=== PATIENT | male | born 1960 | race African-American/Black ===

== ENCOUNTER 2018-01-28 23:07 | Inpatient (IN) | payer MEDICAID ==
[~2018-01-28] VITALS: Ht 175.3 cm; Wt 159.0 kg
[2018-01-28] MEDS ORDERED: SODIUM CHLORIDE FLUSH 10ML SYR IVF ONE (23:30)
[2018-01-29] VITALS (8 sets, daily range): BP systolic 124–161; BP diastolic 84–109
[2018-01-29 00:05] LABS: ALANINE AMINOTRANSFERASE 25 U/L (12-78); ALBUMIN 3.6 g/dL (3.4-5.0); ANION GAP 10 mmol/L (5-15); CALCIUM 8.7 mg/dL (8.5-10.1); CHLORIDE 108 mmol/L (98-107); CREATININE 1.35 mg/dL (0.7-1.3)
[2018-01-29 00:08] LABS: BASOPHILS % (AUTO) 1 % (0-1); EOSINOPHILS # (AUTO) 0.03 x10^3/uL (0-0.4); EOSINOPHILS % (AUTO) 0 % (1-7); LYMPHOCYTES # (AUTO) 2.19 x10^3/uL (1-3.4); LYMPHOCYTES % (AUTO) 27 % (22-44); MD NO; MEAN CORPUSCULAR HEMOGLOBIN 25.5 pg (27.5-34.5); MEAN CORPUSCULAR HGB CONC 31.4 g/dL (33.2-36.2); MEAN CORPUSCULAR VOLUME 81.4 fL (81-97); MEAN PLATELET VOLUME 9.3 fL (7.4-10.4); MONOCYTES # (AUTO) 0.61 x10^3/uL (0.2-0.8); MONOCYTES % (AUTO) 8 % (2-9); NEUTROPHILS # (AUTO) 5.16 x10^3/uL (1.8-6.8); NEUTROPHILS % (AUTO) 64 % (42-75); PLATELET COUNT 337 x10^3/uL (130-400); RED BLOOD COUNT 5.09 x10^6/uL (4.38-5.82); RED CELL DISTRIBUTION WIDTH 15.8 % (9.4-14.8)
[2018-01-29 00:09] LABS: ALKALINE PHOSPHATASE 67 U/L (45-117); BILIRUBIN,TOTAL 1.4 mg/dL (0.2-1.0)
[2018-01-29] MEDS ORDERED: FUROSEMIDE 40 MG/4 ML IVPush ONE (00:30)
[2018-01-29] MEDS ORDERED: NITROGLYCERIN OINT 2%, 1GM TP ONE ×2 (00:30→00:33)
[2018-01-29] MEDS ORDERED: FUROSEMIDE 40 MG/4 ML ONE (00:33)
[2018-01-29] MEDS ORDERED: POTA99TA24 PO (00:51)
[2018-01-29] MEDS ORDERED: FURO40TA6 PO (00:51)
[2018-01-29] MEDS ORDERED: ASPI-496 PO (00:51)
[2018-01-29] MEDS ORDERED: CARV3.122 PO (00:51)
[2018-01-29] MEDS ORDERED: LOVA10TA PO (00:51)
[2018-01-29] MEDS ORDERED: GUAIFENESIN/DM 200-20MG, 10ML UDC PO PRN (01:00)
[2018-01-29] MEDS ORDERED: POLYETHYLENE GLYCOL 17 GM PACKET PO PRN (01:00)
[2018-01-29] MEDS ORDERED: ONDANSETRON 2MG/ML, 2ML IVPush PRN (01:00)
[2018-01-29] MEDS: ACETAMINOPHEN 325 MG TABLET PO PRN ×2 (02:06→09:42)
[2018-01-29 05:11] LABS: ANION GAP 9 mmol/L (5-15); CALCIUM 8.7 mg/dL (8.5-10.1); CHLORIDE 107 mmol/L (98-107)
[2018-01-29 05:19] LABS: CREATININE 1.38 mg/dL (0.7-1.3); TROPONIN I 0.043 ng/mL (0.000-0.045)
[2018-01-29] MEDS: ASPIRIN 81 MG TABLET EC PO SCH (05:33)
[2018-01-29] MEDS: CARVEDILOL 6.25 MG TABLET PO SCH ×2 (05:33→17:45)
[2018-01-29] MEDS ORDERED: POTASSIUM CHLORIDE 20 MEQ TAB.ER.PRT PO SCH (09:00)
[2018-01-29] MEDS ORDERED: FUROSEMIDE 40 MG/4 ML IV SCH (09:00)
[2018-01-29] MEDS: FUROSEMIDE 40 MG/4 ML IV SCH ×2 (09:42→19:12)
[2018-01-29] MEDS: ENOXAPARIN 40 MG/0.4 ML SQ SCH ×2 (09:42→19:47)
[2018-01-29] MEDS: SODIUM CHLORIDE FLUSH 10ML SYR IVF SCH ×2 (09:42→19:47)
[2018-01-29] MEDS ORDERED: CLOP75TA52 PO (13:52)
[2018-01-29] MEDS ORDERED: ASPI81TA45 PO (13:52)
[2018-01-29] MEDS ORDERED: LISI-167 PO (13:52)
[2018-01-29] MEDS ORDERED: POTA10TA PO (13:52)
[2018-01-29] MEDS ORDERED: CARV6.252 PO (13:52)
[2018-01-29] MEDS ORDERED: LOVA20TA2 PO (13:52)
[2018-01-29] MEDS: SPIRONOLACTONE 25 MG TABLET PO SCH (16:17)
[2018-01-30 00:36] VITALS: BP 129/88
[2018-01-30] MEDS: ASPIRIN 81 MG TABLET EC PO SCH (06:05)
[2018-01-30] MEDS: CARVEDILOL 6.25 MG TABLET PO SCH ×2 (06:05→17:06)
[2018-01-30 07:09] VITALS: BP 125/84
[2018-01-30] MEDS: ENOXAPARIN 40 MG/0.4 ML SQ SCH ×2 (08:29→20:25)
[2018-01-30] MEDS: SODIUM CHLORIDE FLUSH 10ML SYR IVF SCH ×2 (08:29→20:25)
[2018-01-30] MEDS: FUROSEMIDE 40 MG/4 ML IV SCH ×2 (08:29→20:25)
[2018-01-30] MEDS: SPIRONOLACTONE 25 MG TABLET PO SCH (08:30)
[2018-01-30 08:35] LABS: ALBUMIN 3.5 g/dL (3.4-5.0); ANION GAP 9 mmol/L (5-15); CALCIUM 8.4 mg/dL (8.5-10.1); CHLORIDE 107 mmol/L (98-107); CREATININE 1.37 mg/dL (0.7-1.3)
[2018-01-30 13:03] VITALS: BP 117/77
[2018-01-30 18:48] VITALS: BP 112/73
[2018-01-30] MEDS ORDERED: LOVASTATIN 20 MG TABLET PO SCH (21:00)
[2018-01-31 03:13] VITALS: BP 115/75
[2018-01-31] MEDS: ASPIRIN 81 MG TABLET EC PO SCH (06:35)
[2018-01-31 07:32] VITALS: BP 121/80
[2018-01-31] MEDS ORDERED: SPIRONOLACTONE 25 MG TABLET PO SCH (09:00)
[2018-01-31] MEDS ORDERED: LISINOPRIL 10 MG TABLET PO SCH (09:00)
[2018-01-31] MEDS ORDERED: CLOPIDOGREL 75 MG TABLET PO SCH (09:00)
[2018-01-31] MEDS: CARVEDILOL 6.25 MG TABLET PO SCH (09:04)
[2018-01-31] MEDS: SODIUM CHLORIDE FLUSH 10ML SYR IVF SCH (09:05)
[2018-01-31] MEDS: FUROSEMIDE 40 MG/4 ML IV SCH (09:05)
[2018-01-31] MEDS: ENOXAPARIN 40 MG/0.4 ML SQ SCH (09:05)
[2018-01-31 14:00] VITALS: BP 127/77
[2018-01-31] MEDS ORDERED: FURO40TA6 PO (15:34)
[2018-01-31] MEDS ORDERED: SPIR25TA PO (15:34)
== END 2018-01-31 16:40 | disposition home or self-care (01) | DRG 291 ==
LOC: ED 23:36 → EDIP 01-29 00:46 → 5SO 01-29 01:23 → DCLOUNGE 01-31 16:30
PROVIDERS: ADMIT Hospitalist; ATTEND Hospitalist
PROC: 5A09357 Assistance with Respiratory Ventilation, Less than 24 Consecutive Hours, Continuous Positive Airway Pressure (ICD-10-PCS; principal; 2018-01-29)
DX: I13.0 Hypertensive heart and chronic kidney disease with heart failure and stage 1 through stage 4 chronic kidney disease, or unspecified chronic kidney disease (principal); I50.43 Acute on chronic combined systolic (congestive) and diastolic (congestive) heart failure; Z68.43 Body mass index [BMI] 50.0-59.9, adult; I50.82 Biventricular heart failure; G47.30 Sleep apnea, unspecified; N18.2 Chronic kidney disease, stage 2 (mild); G47.33 Obstructive sleep apnea (adult) (pediatric); I42.9 Cardiomyopathy, unspecified; R09.02 Hypoxemia; I08.3 Combined rheumatic disorders of mitral, aortic and tricuspid valves; E66.9 Obesity, unspecified; Z90.49 Acquired absence of other specified parts of digestive tract; Z79.899 Other long term (current) drug therapy
CPT/HCPCS: 36415; 71045; 80048; 80053; 82040; 83735; 83880; 84100; 84484; 85025; 93005; 93306; 94660; 96374; G0378; J1650; J1940